=== PATIENT | female | born 1955 | race Caucasian/White ===

== ENCOUNTER 2022-04-30 09:34 | Emergency (ER) | payer BC, SELFPAY ==
[2022-04-30 09:39] VITALS: BP 126/66; PULSE 61; RESP 12; TEMP 36.8; O2SAT 98; BMI 20.6
--- NOTE | 2022-04-30 09:51 | RAD_ITS ---
STUDY: X-RAY - LEFT WRIST REASON FOR EXAM: Female, 66 years old. Trauma, pain TECHNIQUE: 3 view(s) of the wrist were obtained. COMPARISON: None. FINDINGS: There is a comminuted, impacted and intra-articular distal radial fracture. There is dorsal displacement of the distal radius. There is an ulnar styloid fracture. There is a fracture of the waist of the scaphoid carpal bone. Normal carpal articulations. Normal carpometacarpal articulation of the thumb. Normal second through fifth carpometacarpal articulations. Normal visualized metacarpal bones. RAD/Wrist 2 Views IMPRESSION: Scaphoid fracture. Distal radial fracture. Ulnar styloid fracture. Electronically Signed: Renetta Geronimo MD at 10:34 EST ,
--- NOTE | 2022-04-30 09:53 | EX.ED.UPPERE ---
HPI History of Present Illness HPI Narrative: 66-year-old female presents with her via EMS because of fall with injury to her left elbow and wrist. She has past medical history of hypotension, osteopenia, and anxiety. She was out for a walk this morning and slipped on the ice. She fell onto her left elbow and wrist. She denies hitting her head or loss of consciousness. No other injury. She is right-hand dominant. She has pain that is worse with movement of her elbow and wrist. No pain in shoulder. Chief Complaint: [facility] Medical History Anxiety Osteopenia Home Medications fluoxetine 20 mg capsule 20 mg PO DAILY 04/30/22 [History Last Taken Unknown] mirtazapine 30 mg tablet 30 mg PO DAILY 04/30/22 [History Last Taken Unknown] Allergy/AdvReac Type Severity Reaction Status Date / Time No Known Allergies Allergy Verified 04/30/22 09:36 Social History Smoking Status: Never smoker ROS ROS ED ROS Narrative Constitutional: No fever, no chills. HEENT: No sore throat. No neck pain. No loss of vision. No rhinorrhea. Cardiovascular: No chest pain. No palpitations. No pedal edema. Respiratory: No cough, no shortness of breath. Abdominal: No abdominal pain. No nausea. No vomiting. Genitourinary: No dysuria. No hematuria. Musculoskeletal: No myalgias. Left elbow and left wrist pain worse with movement. Neurologic: No headaches. No dizziness. No lightheadedness. Skin: No rash. No change in color. Psychiatric: No depression. Positive anxiety. EXAM Physical Exam Narrative Exam Narrative: Afebrile. Vital signs noted. HEENT: Normocephalic. Atraumatic. PERRL, EOMI. Neck soft and supple. No point tenderness or step off. Cardiovascular: Regular rate and rhythm. No murmurs, rubs, or gallops appreciated. Respiratory: No tachypnea. Lungs clear to auscultation bilaterally. Gastrointestinal: Abdomen soft, nontender, with normoactive bowel sounds. No rebound or guarding. Neurological: Awake. Alert. Nonfocal, nonlateralizing. Skin: No rash. Normal color. No pallor. Musculoskeletal: No pedal edema. Diffuse tenderness to palpation left elbow. Obvious deformity with swelling left wrist. Neurovascularly intact distally with good capillary refill. Able to oppose thumb, and abduct and abduct fingers. Range of motion of left elbow and left wrist limited secondary to pain. Const Vital Signs: 04/30/22 09:39 Temperature 98.2 F Temperature Source Temporal Pulse Rate 61 Respiratory Rate 12 Blood Pressure 126/66 H Blood Pressure Mean 86 Pulse Ox 98 Oxygen Delivery Method Room Air MDM MDM MDM Narrative Medical decision making narrative: Patient was administered morphine 6 mg intravenously for analgesia. X-rays were obtained of the left elbow and of the left wrist. My interpretation of her left humerus x-rays shows a distal humerus fracture. Dedicated left elbow x-rays interpreted by myself also shows a supracondylar fracture. My interpretation of her left wrist x-ray shows a distal radius dorsal displacement fracture of the distal radius along with an ulnar styloid fracture. There appears to also be a scaphoid fracture at the waist of the scaphoid. I discussed the patient with Dr. Mohan who has visualized the films and agrees that the patient would benefit from transfer to see an orthopedic cast specialist regarding her multiple fractures of her elbow and her left wrist. Patient was administered fentanyl for additional analgesia. I then discussed the patient with the [facility] transfer line. She has been accepted by Ortho trauma for transfer. Disposition is transferred in stable condition. Discharge Plan Triage Chief Complaint: Upper Extremity Injury ED Provider: Edwin Calero Dx/Rx/DC Orders Clinical Impression: Fall, Supracondylar fracture of humerus, Distal radius fracture, left, Fracture of ulnar styloid, Fracture of scaphoid Prescriptions: No Action mirtazapine 30 mg tablet 30 mg PO DAILY Label Comments: TAKE 1 TABLET BY MOUTH EVERYDAY AT BEDTIME fluoxetine 20 mg capsule 20 mg PO DAILY Label Comments: TAKE 2 CAPSULES BY MOUTH EVERY DAY Primary Care Provider: Nargis Laird Referrals: Nargis Laird MD [Primary Care Provider] - Disposition Disposition: Acute Care Hospital Discharge Location: [facility] Discharge Date/Time: 04/30/22 13:03
--- NOTE | 2022-04-30 09:57 | RAD_ITS ---
STUDY: X-RAY - LEFT HUMERUS REASON FOR EXAM: Female, 66 years old. Trauma TECHNIQUE: 2 view(s) of the humerus. COMPARISON: None. FINDINGS: There is a comminuted and impacted supracondylar fracture. No dislocation is visualized. There is focal soft tissue swelling adjacent to the fracture. RAD/Humerus min 2 Views IMPRESSION: Distal humerus fracture. Electronically Signed: Renetta Geronimo MD at 10:30 EST ,
[2022-04-30] MEDS: morphine 8 MG/ML Syringe 6 MG IV (10:01)
--- NOTE | 2022-04-30 10:12 | RAD_ITS ---
STUDY: X-RAY - LEFT ELBOW REASON FOR EXAM: Female, 66 years old. Pain TECHNIQUE: 3 view(s) of the elbow. COMPARISON: None. FINDINGS: There is an impacted supracondylar fracture of the humerus. There is dorsal displacement of the distal humerus. No dislocation is visualized. Normal visualized radius and ulna. There is diffuse soft tissue swelling. RAD/Elbow 2 Views IMPRESSION: Distal humeral fracture. Electronically Signed: Renetta Geronimo MD at 10:32 EST ,
[2022-04-30 10:26] VITALS: BP 120/71; PULSE 60; O2SAT 98
[2022-04-30 11:22] VITALS: BP 107/66; PULSE 64; RESP 14; O2SAT 97
[2022-04-30] MEDS: fentaNYL 100 MCG/2 ML Ampul 50 MCG IV ×2 (11:22→12:54)
[2022-04-30 12:16] VITALS: BP 102/64; PULSE 65; RESP 14; O2SAT 97
== END 2022-04-30 13:03 | disposition short-term general hospital (02) ==
PROVIDERS: Emergency Provider Emergency Medicine; PCP Internal Medicine; Visit Provider Emergency Medicine
DX: S52.612A Displaced fracture of left ulna styloid process, initial encounter for closed fracture (principal); F41.9 Anxiety disorder, unspecified; S42.412A Displaced simple supracondylar fracture without intercondylar fracture of left humerus, initial encounter for closed fracture; S52.592A Other fractures of lower end of left radius, initial encounter for closed fracture; S62.002A Unspecified fracture of navicular [scaphoid] bone of left wrist, initial encounter for closed fracture; W19.XXXA Unspecified fall, initial encounter
CPT/HCPCS: 73060; 73070; 73080; 73100; 73110; 96374; 96375; 96376; 99285; A4216